=== PATIENT | male | born 1950 | race Caucasian/White ===

== ENCOUNTER 2017-06-12 08:34 | Outpatient (CLI) | payer MEDICARE, BC ==
[2017-06-12 11:05] LABS: Hemoglobin 15.2 g/dL (14.0-18.0); Mean Corpuscular HGB CONC 32.5 g/dL (32.0-36.0); Mean Corpuscular Hemoglobin 32.7 pg (27.0-31.0); Mean Platelet Volume 9.4 fL (7.4-10.4); Platelet Count 185 thou/uL (130-400); RBC Distribution Width 12.1 % (11.5-14.5); Red Blood Cell (RBC) Count 4.66 mill/uL (4.70-6.10); White Blood Cell (WBC) Count 6.5 thou/uL (4.8-10.8)
[2017-06-12 11:07] LABS: PTT 31.7 SEC (22.9-36.1)
[2017-06-12 11:08] LABS: INR-International Normal Ratio 1.2; Prothrombin Time 15.7 SEC (12.0-14.7)
[2017-06-12 11:10] LABS: Bilirubin Small (Negative); Blood, Urine Negative (Negative); Clarity CLEAR (Clear); Glucose, Urine (Dipstick) Negative (Negative); Leukocyte Trace (Negative); Nitrite Negative (Negative); Protein, Urine (Dipstick) Negative (Neg-Trace); Specific Gravity, Urine 1.025 (1.002-1.036)
[2017-06-12 11:22] LABS: Anion Gap 13 mmol/L (10-20); BUN (Urea Nitrogen) 19 mg/dL (8.4-25.7); Calc. Creatinine Clearance 0 mL/min (70-130); Calcium 10.4 mg/dL (7.8-10.44); Carbon Dioxide 27 mmol/L (23-31); Chloride 102 mmol/L (98-107); Estimated GFR-MDRD 72; Glucose 81 mg/dL (80-115); Potassium 4.4 mmol/L (3.5-5.1); Sodium 138 mmol/L (136-145)
[2017-06-12 11:24] LABS: Bacteria/HPF None Seen HPF (None Seen); Hyaline Casts/LPF 0-3 HYALINE CAST LPF (0-3 Hyaline); Pathc Cast-AUWi Flag 0.13 (0-2.49); Squamous Epithelial None Seen HPF (0-3); WBC/HPF 0-3 HPF (0-3)
--- NOTE | 2017-06-12 21:11 | EKG ---
Test Reason : Blood Pressure : / mmHG Vent. Rate : 107 BPM Atrial Rate : 107 BPM P-R Int : 000 ms QRS Dur : 102 ms QT Int : 334 ms P-R-T Axes : 000 069 053 degrees QTc Int : 445 ms Atrial fibrillation with rapid ventricular response Minimal voltage criteria for LVH, may be normal variant Abnormal ECG When compared with ECG of 21-NOV-2013 12:02, Nonspecific T wave abnormality no longer evident in Inferior leads Nonspecific T wave abnormality no longer evident in Anterolateral leads Confirmed by ERLINDA EDWARD ([id number]) on 06/12/2017 9:11:26 PM Referred By: NICHELLE Confirmed By:ERLINDA EDWARD
== END 2017-06-12 08:35 | disposition home or self-care (01) ==
LOC: LABBT 08:34
PROVIDERS: ATTEND Orthopaedic Surgery
DX: Z01.810 Encounter for preprocedural cardiovascular examination (principal); M17.0 Bilateral primary osteoarthritis of knee
CPT/HCPCS: 80048; 81001; 85027; 85610; 85730; 86850; 86900; 86901; 93005; 93010

== ENCOUNTER 2017-06-18 05:35 | Inpatient (IN) | payer MEDICARE, BC ==
--- NOTE | 2017-06-14 10:15 | HP ---
HISTORY OF PRESENT ILLNESS: The patient is a 67-year-old male with a long history of progressive deg enerative arthritis of both knees, left greater than right, unresponsive to conservative treatment in cluding rest, restriction of activities. Lifestyle adjustments and previous cortisone injections. T he patient does have mental retardation since , but is otherwise fairly independent, but is havi ng progressive problems which is preventing him from maintaining his independence. PAST MEDICAL HISTORY: As noted above. The patient also has history of atrial fibrillation, previous parathyroidectomy for parathyroid adenoma, sleep apnea, actinic keratosis. CURRENT MEDICATIONS: Include Xarelto, which he has stopped preoperatively in anticipation of surgery . Other medications include metoprolol, Lasix, potassium, Lipitor, Protonix, Proscar, Rapaflo. ALLERGIES: He is allergic to PENICILLIN. He has been seen and cleared for surgery by Dr. Velazco and Dr. Canela. FAMILY HISTORY/SOCIAL HISTORY/REVIEW OF SYSTEMS: Otherwise unremarkable. PHYSICAL EXAMINATION: GENERAL: Reveals an alert, pleasant male. HEENT: Unremarkable. NECK: Supple. CHEST: Clear. HEART: Regular rate and rhythm. ABDOMEN: Soft, nontender. PELVIC/RECTAL/BREAST: Exams are deferred. EXTREMITIES: Pertinent findings related to his knees. There is mild varus and trace effusion of bot h knees. There is tenderness and crepitus over the medial joint line bilaterally, left slightly grea ter than right. There is antalgic gait, especially on the left. Range of motion is 5 to 105 degrees bilaterally. There is no instability. Neurovascular exam is intact. There are palpable distal pul ses. LABORATORY AND X-RAY FINDINGS: X-rays of both knees reveal bone on bone collapse medially both knees with progression from previous x-rays. IMPRESSION: 1. Degenerative arthritis, both knees, left symptomatic more than right. 2. History of atrial fibrillation. 3. History of mental retardation. PLAN: Left total knee replacement. The nature of the surgery, length of recovery, and potential com plications such as infection, loss of motion, incomplete relief, delayed wound healing, neurovascular injury, thromboembolic phenomenon, possible transfusion, and need for revision have been discussed i n detail with the patient and his family and guardians.
[2017-06-18] MEDS ORDERED: Levofloxacin 500 mg/D5W 100 ml Premix Bag ONE (06:01)
[2017-06-18] MEDS ORDERED: Tranexamic Acid 1,000 MG/100 ML BAG ONE ×2 (06:01→09:25)
[2017-06-18] MEDS ORDERED: Vancomycin HCl 1.5 GM in Sodium Chloride 0.9% 250 ML 300 ML IVPB SCH ×2 (06:15→20:00)
[2017-06-18] MEDS ORDERED: Lidocaine 1% w/Epinephrine 1:200K 30 ML VIAL ONE (06:17)
[2017-06-18] MEDS ORDERED: Bupivacaine 0.25% HCL 30 ML VIAL ONE (06:17)
[2017-06-18] MEDS ORDERED: Fentanyl 100 MCG/2 ML VIAL ONE ×2 (06:24→09:07)
[2017-06-18] MEDS ORDERED: Lidocaine 1% (PF) 30 ML VIAL ONE (06:24)
[2017-06-18] MEDS ORDERED: Midazolam HCl 2 mg/2 ml Vial ONE (06:24)
[2017-06-18] MEDS ORDERED: Zolpidem Tartrate 5 MG TAB PO PRN ×2 (07:15→10:56)
[2017-06-18] MEDS ORDERED: Ondansetron HCl/PF 4 MG/2 ML Vial IVP PRN ×3 (07:15→10:56)
[2017-06-18] MEDS ORDERED: BUPIVACAINE EPIDURAL SCH (07:15)
[2017-06-18] MEDS ORDERED: HYDROcodone/Acetaminophen 5/325 mg Tablet PO PRN ×2 (07:15)
[2017-06-18] MEDS ORDERED: Promethazine HCl 25 MG/ML VIAL IM PRN ×2 (07:15→08:55)
[2017-06-18] MEDS ORDERED: traMADol HCl 50 MG TAB PO PRN ×3 (07:15→10:56)
[2017-06-18] MEDS ORDERED: SODIUM CHLORIDE EPIDURAL SCH (07:15)
[2017-06-18] MEDS ORDERED: Fentanyl 100 MCG/2 ML VIAL IV PRN (07:16)
[2017-06-18] MEDS ORDERED: Promethazine HCl 25 MG/ML VIAL SLOW IVP PRN ×2 (08:55→10:56)
[2017-06-18] MEDS ORDERED: Tranexamic Acid 1,000 MG in Sodium Chloride 0.9% 100 ML IVPB SCH ×2 (09:00→10:56)
--- NOTE | 2017-06-18 09:13 | OP ---
DATE OF PROCEDURE: 06/18/2017 SURGEON: Robert Hay M.D. TILLER MAN: JEFFREY Laws. ANESTHESIA: General plus femoral and sciatic nerve blocks. PREOPERATIVE DIAGNOSIS: Degenerative arthritis, left knee. POSTOPERATIVE DIAGNOSIS: Degenerative arthritis, left knee. PROCEDURES: Left total knee replacement with computer-assisted navigation using cemented Triathlon c omponents (#6 femoral component, #5 universal tibial baseplate with 11 mm CS plastic insert, and 35 m m A35 all plastic patellar component). NARRATIVE REPORT: After satisfactory anesthesia was induced in supine position, sequential compressi on device was placed on the non-operative leg throughout the procedure. The left leg was elevated, e xsanguinated with an Esmarch bandage, and the tourniquet inflated to 300 mmHg. A gently curved media l parapatellar incision was made and carried down to subcutaneous tissues, and bleeding points contro lled with Bovie cautery. Medial parapatellar arthrotomy was performed. Patella was dislocated later ally and portions of the fat pad were excised for exposure. There was marked degenerative arthritis of the knee, especially medially, with large areas of exposed bone, but there was also significant de generative changes laterally. Meniscal remnants and osteophytes were removed. Using the appropriate guides and the GT Nexus pinless navigation system, the distal femoral and proximal tibial articular s urfaces were excised with an oscillating saw to accept the trial components. It was felt that a #6 f emoral component with a #5 universal tibial baseplate with 11 mm CS plastic insert gave appropriate s ize, fit, stability, and correction of the preoperative deformity. The patellar articular surfaces s urface was excised to accept an all plastic A35 patellar component. There was good patellar tracking . The trial components were removed. The subcutaneous tissues and posterior capsule were injected w ith a mixture of 60 mL of 1% lidocaine with epinephrine with 30 mL of 0.25% Marcaine with epinephrine . The knee was copiously irrigated with a pulsatile lavage and the bony surfaces thoroughly cleaned and dried. The permanent components were then cemented in a single stage using 1 package of cement p remixed with 1 gram of tobramycin powder. Excess cement was removed. There was again good fit and s tability of the components. The knee was then copiously irrigated. The medial retinaculum and quadr iceps mechanism was closed with interrupted #2 Vicryl and a running #2 Quill. Subcutaneous tissues w ere closed with running 0 Quill suture and the skin closed with running subcuticular 3-0 Monoderm and SurgiSeal skin adhesive. A sterile bulky compressive dressing was applied and the tourniquet deflat ed after 67 minutes. The foot promptly pinked up. Sequential compression device was applied to his operated leg. He was awakened and taken to recovery room in stable condition. There were no apparen t intraoperative complications. The estimated blood loss was less than 100 mL.
--- NOTE | 2017-06-18 10:22 | RAD ---
LEFT KNEE 2 VIEWS: Date: 06/18/17 HISTORY: Postop. FINDINGS: Total knee prosthesis has been placed, which is in satisfactory position. No signs of fracture. IMPRESSION: Placement of total knee prosthesis. POS: DAYA
[2017-06-18] MEDS ORDERED: diphenhydrAMINE 25 MG CAP PO PRN (10:56)
[2017-06-18] MEDS ORDERED: HYDROcodone/Acetaminophen 10/325 mg Tablet PO PRN ×2 (10:56)
[2017-06-18] MEDS ORDERED: Acetaminophen 325 MG TAB PO PRN (10:56)
[2017-06-18] MEDS ORDERED: Fentanyl 100 MCG/2 ML VIAL SLOW IVP PRN ×2 (10:56)
[2017-06-18] MEDS ORDERED: Metoprolol Tartrate 50 MG TAB PO SCH (11:30)
[2017-06-18] MEDS ORDERED: Silodosin 8 MG CAP PO SCH (11:30)
[2017-06-18] MEDS ORDERED: Potassium Chloride 20 MEQ TAB PO SCH (11:30)
[2017-06-18] MEDS ORDERED: Furosemide 40 MG TAB PO SCH (11:30)
[2017-06-18 11:48] VITALS: BMI 32.8
[2017-06-18] MEDS ORDERED: Bupivacaine 0.25% 10 ML VIAL ONE (11:50)
[2017-06-18] MEDS ORDERED: Bupivacaine PF 0.5% 30 ML VIAL ONE (11:50)
[2017-06-18] MEDS ORDERED: Eucerin (Mineral Oil/Petrolatum,White) 30 gm Jar TOP PRN (12:01)
[2017-06-18] MEDS ORDERED: Cepastat Lozenges 1 LOZ PO PRN (12:01)
[2017-06-18] MEDS ORDERED: Labetalol HCl 100 MG/20 ML VIAL SLOW IVP PRN (12:01)
[2017-06-18] MEDS ORDERED: Polyethylene Glycol 3350 17 GM Packet PO PRN (12:01)
[2017-06-18] MEDS ORDERED: Propofol 200 MG/20 ML VIAL ONE (12:17)
[2017-06-18] MEDS ORDERED: Dexamethasone 20 MG/5 ML VIAL ONE (12:17)
[2017-06-18] MEDS ORDERED: Ondansetron HCl/PF 4 MG/2 ML Vial ONE (12:17)
[2017-06-18] MEDS ORDERED: Ketorolac Tromethamine 30 MG/ML VIAL ONE (12:17)
[2017-06-18] MEDS ORDERED: Lidocaine 1% PF 5 ML VIAL ONE (12:17)
[2017-06-18] MEDS: Sodium Chloride 0.9% 1,000 ML IV SCH ×2 (14:52→20:01)
[2017-06-18] MEDS: Ketorolac Tromethamine 30 MG/ML VIAL IVP SCH ×3 (14:55→23:32)
[2017-06-18] MEDS: Finasteride 5 MG TAB PO SCH (20:38)
[2017-06-18] MEDS: Metoprolol Tartrate 50 MG TAB PO SCH (20:38)
[2017-06-18] MEDS: Atorvastatin Calcium 20 MG TAB PO SCH (20:38)
--- NOTE | 2017-06-18 22:17 | PDOC.PN ---
- Subjective Encounter Start Date: 06/18/17 Encounter Start Time: 11:45 Patient seen and examined. No new complaints. Pain controlled. Consult for med mngt. - Objective MAR Reviewed: Yes Vital Signs & Weight: Vital Signs (12 hours) Temp Pulse Resp BP Pulse Ox 06/18/17 20:00 98.0 F 105 H 16 103/61 95 06/18/17 12:00 97.7 F 93 18 97 Weight Weight 229 lb I&O: 06/17/17 06/18/17 06/19/17 06:59 06:59 06:59 Intake Total 1900 Output Total 1300 Balance 600 Result Diagrams: 06/19/17 04:41 EKG Reviewed by me: Yes (Afib with HR 100-110) Phys Exam - Physical Examination Constitutional: NAD Respiratory: no wheezing, no rhonchi Cardiovascular: no rub, irregular Gastrointestinal: soft, non-tender, positive bowel sounds Musculoskeletal: no edema Neurological: moves all 4 limbs Psychiatric: A&O x 3 Dx/Plan - Plan DVT proph w/SCDs IMPRESSION: 1. CAD 2. Atrial Fibrillation -follows Dr. Canela, information assurance 3. Hypertension 4. BPH 5. Obstructive sleep apnea on CPAP 6. Diverticulosis 7. Hearing loss-(hearing aids) 8. h/o pericardial effusion & Perforated duodenal ulcer PLAN: * AM labs * Resume Anticoag when ok with Ortho * Cont current dose of Metoprolol for rate control * Add PRN PO Cardizem if HR elevated * Cont Statins * Cont meds for BPH * Family to bring CPAP. * Will follow. Thank you for this consultation. Review of Systems - Review of Systems Respiratory: negative: Cough, Dry, Shortness of Breath, Hemoptysis, SOB with Excertion, Pleuritic Pain, Sputum, Wheezing Cardiovascular: negative: chest pain, palpitations, orthopnea, paroxysmal nocturnal dyspnea, edema, light headedness - Medications/Allergies Allergies/Adverse Reactions: Allergies Allergy/AdvReac Type Severity Reaction Status Date / Time adhesive Allergy Rash Verified 06/12/17 08:57 Penicillins Allergy Verified 06/12/17 08:57 Medications: Current Medications Acetaminophen (Tylenol) 650 mg PO Q4H PRN PRN Reason: RYAN/ T > 101F; Mild Pain (1-3) Hydrocodone Bitart/Acetaminophen ([place] 5/325) 1 tab PO Q4H PRN PRN Reason: Mild Pain (1-3) Hydrocodone Bitart/Acetaminophen ([place] 5/325) 2 tab PO Q4H PRN PRN Reason: For Moderate Pain 4-6 Atorvastatin Calcium (Lipitor) 20 mg PO HS [facility] Last Admin: 06/18/17 20:38 Dose: 20 mg Diltiazem HCl (Cardizem) 30 mg PO Q6HR PRN PRN Reason: HR >120 sustained Diphenhydramine HCl (Benadryl) 25 mg PO Q6H PRN PRN Reason: Itching Fentanyl (Sublimaze) 50 mcg IV Q1H PRN PRN Reason: BT PAIN Ferrous Gluconate (Fergon) 324 mg PO BID-WM [facility] Finasteride (Proscar) 5 mg PO [facility] Last Admin: 06/18/17 20:38 Dose: 5 mg Furosemide (Lasix) 40 mg PO DAILY [facility] Bupivacaine HCl 33.3 ml/ (Sodium Chloride) 100 mls @ 8 mls/hr EPIDURAL INF [facility] PRN Reason: Protocol Levofloxacin 500 mg/ Device 100 mls @ 100 mls/hr IVPB 0800 [facility] Stop: 06/19/17 08:59 Sodium Chloride (Normal Saline 0.9%) 1,000 mls @ 100 mls/hr IV .Q10H [facility] Last Admin: 06/18/17 20:01 Dose: Not Given Iron/Minerals/Multivitamins (Theragran M) 1 tab PO DAILY [facility] Ketorolac Tromethamine (Toradol) 15 mg IVP Q6HR [facility] Stop: 06/20/17 06:01 Last Admin: 06/18/17 18:52 Dose: 15 mg Labetalol HCl (Normodyne) 10 mg SLOW IVP Q4H PRN PRN Reason: Systolic BP > 180 Metoprolol Tartrate (Lopressor) 75 mg PO BID [facility] Last Admin: 06/18/17 20:38 Dose: 75 mg Mineral Oil/White Petrolatum (Eucerin Cream) 0 gm TOP BIDPRN PRN PRN Reason: Dry Skin Ondansetron HCl (Zofran) 4 mg IVP Q6H PRN PRN Reason: Nausea/Vomiting Pantoprazole Sodium (Protonix) 40 mg PO HS [facility] Last Admin: 06/18/17 20:40 Dose: 40 mg Polyethylene Glycol (Miralax) 17 gm PO DAILY PRN PRN Reason: Constipation Potassium Chloride (K-Dur) 20 meq PO QAM-WM [facility] Promethazine HCl (Phenergan) 12.5 mg IM Q4H PRN PRN Reason: Nausea Promethazine HCl (Phenergan) 12.5 mg SLOW IVP Q4H PRN PRN Reason: Nausea/Vomiting Rivaroxaban (Xarelto) 10 mg PO DAILY [facility] Senna/Docusate Sodium (Senokot S) 2 tab PO BID [facility] Silodosin (Rapaflo) 8 mg PO QAM-WM [facility] Sodium Chloride (Flush - Normal Saline) 10 ml IVF PRN PRN PRN Reason: Saline Flush Throat Lozenges (Cepastat Lozenges) 1 fredy PO Q2H PRN PRN Reason: Sore Throat Tramadol HCl (Ultram) 50 mg PO Q6H PRN PRN Reason: Mild Pain (1-3) Tramadol HCl (Ultram) 100 mg PO Q6H PRN PRN Reason: Moderate Pain 4-6 Zolpidem Tartrate (Ambien) 5 mg PO HSPRN PRN PRN Reason: Insomnia
[2017-06-19 04:59] LABS: Hemoglobin 12.6 g/dL (14.0-18.0); Mean Corpuscular Hemoglobin 32.7 pg (27.0-31.0); Mean Platelet Volume 8.6 fL (7.4-10.4); Platelet Count 166 thou/uL (130-400); Red Blood Cell (RBC) Count 3.85 mill/uL (4.70-6.10); White Blood Cell (WBC) Count 6.5 thou/uL (4.8-10.8)
[2017-06-19] MEDS: Ketorolac Tromethamine 30 MG/ML VIAL IVP SCH ×3 (05:00→17:23)
[2017-06-19] MEDS: Bupivacaine 0.75% 33.3 ML in Sodium Chloride 0.9% 66.7 ML EPIDURAL SCH ×2 (05:04→17:16)
[2017-06-19] MEDS: Sodium Chloride 0.9% 1,000 ML IV SCH ×2 (05:28→17:28)
[2017-06-19 07:02] LABS: Anion Gap 7 mmol/L (10-20); BUN (Urea Nitrogen) 21 mg/dL (8.4-25.7); Calc. Creatinine Clearance 131 mL/min (70-130); Calcium 9.6 mg/dL (7.8-10.44); Carbon Dioxide 27 mmol/L (23-31); Chloride 106 mmol/L (98-107); Estimated GFR-MDRD Greater than 90; Glucose 99 mg/dL (80-115); Magnesium 2.2 mg/dL (1.6-2.6); Sodium 136 mmol/L (136-145)
[2017-06-19] MEDS: Ferrous Gluconate 324 MG TAB PO SCH ×2 (08:46→17:16)
[2017-06-19] MEDS: Silodosin 8 MG CAP PO SCH (08:46)
[2017-06-19] MEDS: Multivitamin W/ Minerals 1 TAB PO SCH (08:47)
[2017-06-19] MEDS: Furosemide 40 MG TAB PO SCH (08:47)
[2017-06-19] MEDS: Senokot S 8.6-50 MG TAB PO SCH ×2 (08:47→20:54)
[2017-06-19] MEDS: Potassium Chloride 20 MEQ TAB PO SCH (08:48)
[2017-06-19] MEDS: Metoprolol Tartrate 50 MG TAB PO SCH ×2 (08:50→20:55)
[2017-06-19] MEDS ORDERED: Rivaroxaban 10 MG TAB PO SCH (09:00)
--- NOTE | 2017-06-19 18:20 | PDOC.PN ---
- Subjective Encounter Start Date: 06/19/17 Encounter Start Time: 13:00 Patient seen and examined. No new complaints. No overnight events. Pain controlled. - Objective MAR Reviewed: Yes Vital Signs & Weight: Vital Signs (12 hours) Temp Pulse Resp BP Pulse Ox 06/19/17 15:50 98.4 F 118 H 24 H 109/68 95 06/19/17 11:30 98.2 F 107 H 20 116/80 96 06/19/17 08:40 98.3 F 113 H 20 95 06/19/17 07:40 98.3 F 113 H 20 106/70 95 Weight Admit Weight 229 lb Weight 229 lb I&O: 06/18/17 06/19/17 06/20/17 06:59 06:59 06:59 Intake Total 3677.0 2510.5 Output Total 1750 1525 Balance 1927.0 985.5 Result Diagrams: 06/19/17 04:41 06/19/17 04:41 Phys Exam - Physical Examination Constitutional: NAD Respiratory: no wheezing, no rhonchi Cardiovascular: no rub, irregular Gastrointestinal: soft, non-tender, positive bowel sounds Musculoskeletal: no edema Neurological: moves all 4 limbs Psychiatric: A&O x 3 Dx/Plan - Plan DVT proph w/SCDs IMPRESSION: 1. CAD 2. 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 Hypertension 4. BPH 5. Obstructive sleep apnea on CPAP 6. Diverticulosis 7. Hearing loss-(hearing aids) 8. h/o pericardial effusion & Perforated duodenal ulcer PLAN: * Labs reviewed * Anticoag restarted * Cont current dose of Metoprolol for rate control * Cont PRN PO Cardizem if HR elevated * Cont Statins/Rapaflo/CPAP * Add PPI * Will follow. Review of Systems - Review of Systems Respiratory: negative: Cough, Dry, Shortness of Breath, Hemoptysis, SOB with Excertion, Pleuritic Pain, Sputum, Wheezing Cardiovascular: negative: chest pain, palpitations, orthopnea, paroxysmal nocturnal dyspnea, edema, light headedness - Medications/Allergies Allergies/Adverse Reactions: Allergies Allergy/AdvReac Type Severity Reaction Status Date / Time adhesive Allergy Rash Verified 06/12/17 08:57 Penicillins Allergy Verified 06/12/17 08:57 Medications: Current Medications Acetaminophen (Tylenol) 650 mg PO Q4H PRN PRN Reason: RYAN/ T > 101F; Mild Pain (1-3) Hydrocodone Bitart/Acetaminophen ([place] 5/325) 1 tab PO Q4H PRN PRN Reason: Mild Pain (1-3) Hydrocodone Bitart/Acetaminophen ([place] 5/325) 2 tab PO Q4H PRN PRN Reason: For Moderate Pain 4-6 Atorvastatin Calcium (Lipitor) [address] [facility] Last Admin: 06/18/17 20:38 Dose: 20 mg Diltiazem HCl (Cardizem) 30 mg PO Q6HR PRN PRN Reason: HR >120 sustained Diphenhydramine HCl (Benadryl) 25 mg PO Q6H PRN PRN Reason: Itching Fentanyl (Sublimaze) 50 mcg IV Q1H PRN PRN Reason: BT PAIN Ferrous Gluconate (Fergon) 324 mg PO BID-[facility] Last Admin: 06/19/17 17:16 Dose: 324 mg Finasteride (Proscar) [address] [facility] Last Admin: 06/18/17 20:38 Dose: 5 mg Furosemide (Lasix) 40 mg PO DAILY [facility] Last Admin: 06/19/17 08:47 Dose: 40 mg Bupivacaine HCl 33.3 ml/ (Sodium Chloride) 100 mls @ 8 mls/hr EPIDURAL INF [facility] PRN Reason: Protocol Last Admin: 06/19/17 17:16 Dose: 100 mls Iron/Minerals/Multivitamins (Theragran M) 1 tab PO DAILY [facility] Last Admin: 06/19/17 08:47 Dose: 1 tab Ketorolac Tromethamine (Toradol) 15 mg IVP Q6HR [facility] Stop: 06/20/17 06:01 Last Admin: 06/19/17 17:23 Dose: 15 mg Labetalol HCl (Normodyne) 10 mg SLOW IVP Q4H PRN PRN Reason: Systolic BP > 180 Metoprolol Tartrate (Lopressor) 75 mg PO BID [facility] Last Admin: 06/19/17 08:50 Dose: 75 mg Mineral Oil/White Petrolatum (Eucerin Cream) 0 gm TOP BIDPRN PRN PRN Reason: Dry Skin Ondansetron HCl (Zofran) 4 mg IVP Q6H PRN PRN Reason: Nausea/Vomiting Pantoprazole Sodium (Protonix) [address] [facility] Last Admin: 06/18/17 20:40 Dose: 40 mg Polyethylene Glycol (Miralax) 17 gm PO DAILY PRN PRN Reason: Constipation Potassium Chloride (K-Dur) 20 meq PO QAM-[facility] Last Admin: 06/19/17 08:48 Dose: 20 meq Promethazine HCl (Phenergan) 12.5 mg IM Q4H PRN PRN Reason: Nausea Promethazine HCl (Phenergan) 12.5 mg SLOW IVP Q4H PRN PRN Reason: Nausea/Vomiting Rivaroxaban (Xarelto) 10 mg PO 1800 [facility] Senna/Docusate Sodium (Senokot S) 2 tab PO BID [facility] Last Admin: 06/19/17 08:47 Dose: 2 tab Silodosin (Rapaflo) 8 mg PO QAM-[facility] Last Admin: 06/19/17 08:46 Dose: 8 mg Sodium Chloride (Flush - Normal Saline) 10 ml IVF PRN PRN PRN Reason: Saline Flush Throat Lozenges (Cepastat Lozenges) 1 fredy PO Q2H PRN PRN Reason: Sore Throat Tramadol HCl (Ultram) 50 mg PO Q6H PRN PRN Reason: Mild Pain (1-3) Tramadol HCl (Ultram) 100 mg PO Q6H PRN PRN Reason: Moderate Pain 4-6 Zolpidem Tartrate (Ambien) 5 mg PO HSPRN PRN PRN Reason: Insomnia
[2017-06-19] MEDS: Atorvastatin Calcium 20 MG TAB PO SCH (20:54)
[2017-06-19] MEDS: Finasteride 5 MG TAB PO SCH (20:54)
[2017-06-20] MEDS: Ketorolac Tromethamine 30 MG/ML VIAL IVP SCH ×2 (00:44→05:28)
[2017-06-20] MEDS: Bupivacaine 0.75% 33.3 ML in Sodium Chloride 0.9% 66.7 ML EPIDURAL SCH (07:33)
[2017-06-20] MEDS: Potassium Chloride 20 MEQ TAB PO SCH (08:26)
[2017-06-20] MEDS: Metoprolol Tartrate 50 MG TAB PO SCH (08:26)
[2017-06-20] MEDS: Furosemide 40 MG TAB PO SCH (08:26)
[2017-06-20] MEDS: Ferrous Gluconate 324 MG TAB PO SCH (08:26)
[2017-06-20] MEDS: Multivitamin W/ Minerals 1 TAB PO SCH (08:26)
[2017-06-20] MEDS: Senokot S 8.6-50 MG TAB PO SCH (08:28)
[2017-06-20] MEDS: Silodosin 8 MG CAP PO SCH (09:29)
[2017-06-20 12:20] VITALS: BP 125/76; TEMP 97.7
[2017-06-20] MEDS ORDERED: Rivaroxaban 10 MG TAB PO SCH (18:00)
== END 2017-06-20 13:25 | DRG 470 ==
LOC: SDC 05:35 → SJJU 07:40 → EDSTATUS 09:00
PROVIDERS: ADMIT Orthopaedic Surgery; ATTEND Orthopaedic Surgery
PROC: 0SRD0J9 Replacement of Left Knee Joint with Synthetic Substitute, Cemented, Open Approach (ICD-10-PCS; principal; 2017-06-18)
DX: M17.0 Bilateral primary osteoarthritis of knee (principal); I48.91 Unspecified atrial fibrillation; F79 Unspecified intellectual disabilities; G47.33 Obstructive sleep apnea (adult) (pediatric); I10 Essential (primary) hypertension; N40.0 Benign prostatic hyperplasia without lower urinary tract symptoms; H91.90 Unspecified hearing loss, unspecified ear; Z88.0 Allergy status to penicillin; Z79.01 Long term (current) use of anticoagulants; Z79.899 Other long term (current) drug therapy
CPT/HCPCS: 36415; 80048; 83735; 85027; C1713; C1776; G8978-GP-CL; G8979-GP-CJ; G8987-GO-CK; G8988-GO-CI; J1100; J1885; J1956; J2001; J2250; J2405; J2704; J3010; J3370; J3490; J7050; S0020